=== PATIENT | female | born 1955 | race Caucasian/White ===

== ENCOUNTER 2024-02-17 14:53 | Emergency (ER) | payer OTHER ==
--- NOTE | 2024-02-17 15:44 | RAD REPORT ---
EXAMINATION: CT HEAD WITHOUT CONTRAST CT CERVICAL SPINE WITHOUT CONTRAST CLINICAL INDICATION: Head and neck injury status post head being hit by tile. Head and neck pain TECHNIQUE: Axial CT images from the skull base to the vertex without intravenous contrast. Axial CT i mages through the cervical spine were obtained without intravenous contrast. Sagittal and coronal reformatted images were created from the data set. Coronal and sagittal reformatted images were creat ed from the data set. One or more of the following dose reduction techniques were used: Automated exposure control, adjustment of the mA and/or kV according to patient size, and/or iterative reconstr uction. Unless otherwise specified, incidental findings do not require dedicated imaging follow-up. [id number]. Comparison: none FINDINGS: An intracranial bleed is not seen. Ventricles are normal in caliber. No significant hypodensity within the brain No extra-axial fluid collection. No fluid within the sinuses/mastoids No fracture or dislocation is seen involving the cervical spine.. Mild posterior subluxation C5 on C6 . Spondylosis cervical spine. No significant prevertebral soft tissue swelling noted. IMPRESSION: No acute intracranial abnormality noted A cervical fracture is not seen. 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
--- NOTE | 2024-02-17 16:17 | RAD REPORT ---
Exam:Forearm Left Clinical history: Left forearm pain Findings: No fracture or dislocation seen.
--- NOTE | 2024-02-17 16:18 | RAD REPORT ---
Exam:Knee Left 3 View HISTORY: Left knee pain FINDINGS: No fracture or dislocation seen If the patient continues to have symptoms to suggest an occult fracture, ligamentous or meniscal inju ry then MRI would be recommended
--- NOTE | 2024-02-17 16:20 | RAD REPORT ---
Exam:Forearm Right Clinical history: Right forearm pain Findings: No fracture or dislocation seen.
--- NOTE | 2024-02-17 16:33 | EDPHYS ---
Physician Documentation [facility] Name: Honey Mark Age: 68 yrs Sex: Female : 1955 Arrival Date: 02/17/2024 Time: 14:53 Bed 3 Private MD: ED Physician Devon Chinchilla HPI: 02/16 15:42 This 68 yrs old Female presents to ER via EMS with complaints of head injury. rn 15:42 Mechanism of injury: Blunt trauma. Associated injuries: The patient sustained injury to rn the head, Left knee, left forearm, right forearm. Onset: The symptoms/episode began/occurred just prior to arrival. The patient has not experienced similar symptoms in the past. Patient reports using bathroom and convenience store, large tile, ceramic, fell off the wall and struck on the head, majority of trauma was to top of head but when tile broke it scraped her right side of neck, and also sustained contusions to the right and left forearm as well as the left knee. Unclear if LOC. Takes Xarelto. Reports initially felt dazed and is starting to feel better now. Patient denies any chest pain or abdominal pain. Historical: - Allergies: 15:09 Epinephrine; jl7 15:09 Prednisone; jl7 - Home Meds: 15:09 Xarelto oral [Active]; Metoprolol Tartrate Oral [Active]; levothyroxine oral [Active]; jl7 - PMHx: 15:09 Atrial fibrillation; Hypothyroidism; Hypercholesterolemia; Hypertensive disorder; jl7 - Immunization history:: Adult Immunizations unknown. - Infectious Disease History:: Denies. - Social history:: Smoking status: Patient denies any tobacco usage or history of. - Family history:: not pertinent. - Hospitalizations: : No recent hospitalization is reported. ROS: 15:42 Constitutional: Negative for fever, chills, and weight loss, Neck: Positive for right rn neck pain Cardiovascular: Negative for chest pain, palpitations, and edema, Respiratory: Negative for shortness of breath, cough, wheezing, and pleuritic chest pain, Abdomen/GI: Negative for abdominal pain, nausea, vomiting, diarrhea, and constipation, Back: Negative for injury and pain, MS/Extremity: Positive for right forearm and left forearm pain with bruising, right forearm abrasion, left knee contusion with bruising Neuro: Positive for mild headache, negative for seizure or focal weakness Exam: 15:42 Constitutional: This is a well developed, well nourished patient who is awake, alert, rn and in no acute distress. Head/Face: Normocephalic, atraumatic. Eyes: Pupils equal round and reactive to light, extra-ocular motions intact. Neck: No midline cervical tenderness. Abrasion and contusion to the right lateral neck and postauricular region. No crepitus. No expansile masses. No tenderness over vasculature. Cardiovascular: Regular rate and rhythm. No pulse deficits. Respiratory: Speaking full sentences, unlabored. Abdomen/GI: Soft, nontender MS/ Extremity: Pulses equal, no cyanosis. Neurovascular intact. Full, normal range of motion. Equal circumference. Left suprapatellar ecchymosis with full range of motion of knee. Left distal forearm contusion and ecchymosis with full range of motion and no gross deformity. Right distal forearm with multiple linear abrasions, no lacerations and full range of motion. Neuro: Awake and alert, GCS 15, oriented to person, place, time, and situation. Moving all 4 extremities with equal strength. Vital Signs: 15:06 BP 162 / 92; Pulse 62; Resp 15; Temp 97; Pulse Ox 100% ; Weight 81.65 kg; Height 5 ft. jl7 4 in. ; Pain 4/10; 16:15 BP 155 / 88; Pulse 70; Resp 17; Pulse Ox 98% on R/A; rs5 17:00 BP 147 / 84; Pulse 77; Resp 17; Pulse Ox 98% on R/A; rs5 15:06 Body Mass Index 30.90 (81.65 kg, 162.56 cm) jl7 15:06 Pain Scale: Adult jl7 MDM: 14:59 Medical Screening Exam initiated rn 16:28 Differential diagnosis: closed head injury. Data reviewed: vital signs, nurses notes, rn radiologic studies, CT scan, plain films, and as a result, I will discharge patient. 16:31 Counseling: I had a detailed discussion with the patient and/or guardian regarding the rn historical points, exam findings, and any diagnostic results supporting the discharge/admit diagnosis, radiology results, the need for outpatient follow up, to return to the emergency department if symptoms worsen or persist or if there are any questions or concerns that arise at home. Response to treatment: the patient's symptoms have markedly improved after treatment, and as a result, I will discharge patient. Special discussion: Based on the patient's history, exam and DX evaluation, there is no indication for emergent intervention or inpatient TX. It is understood by the patient/guardian that if the SXs persist or worsen they need to return immediately for re-evaluation. I discussed with the patient/guardian in detail that at this point there is no indication for admission to the hospital. It is understood, however, that if the symptoms persist or worsen the patient needs to return immediately for re-evaluation. ED course: No acute findings on imaging, specifically no fracture or intracranial bleeding. Patient is back to baseline, stable vital signs, will discharge home and asked her to hold her Xarelto for the next day or 2. Patient states that she has already missed a few doses of Xarelto in the last few days, return precautions given and understood.. 02/16 15:01 Order name: CT Head C Spine; Complete Time: 16:12 rn 02/16 15:01 Order name: XRAY Forearm LEFT; Complete Time: 16:23 rn 02/16 15:01 Order name: XRAY Forearm RIGHT; Complete Time: 16:23 rn 02/16 15:01 Order name: XRAY Knee LEFT 3 view; Complete Time: 16:23 rn Administered Medications: No medications were administered Disposition Summary: 02/17/24 16:32 Discharge Ordered Notes: Location: Home rn Problem: new rn Symptoms: have improved rn Condition: Stable rn Diagnosis - Unspecified injury of head, initial encounter rn - Contusion of left forearm rn - Contusion of right forearm rn - Contusion of left knee rn Followup: rn - With: Private Physician - When: As needed - Reason: Recheck today's complaints, Re-evaluation by your physician Discharge Instructions: - Discharge Summary Sheet rn - Contusion rn - Head Injury, Adult rn Forms: - Medication Reconciliation Form rn - Antibiotic internal affairs investigator - Prescription Opioid Use rn - Patient Portal Instructions rn - Leadership Thank You Letter rn Signatures: Dispatcher [employer] EDOK Devon Chinchilla MD MD rn Leal, Jahala, RN RN jl7 Corrections: (The following items were deleted from the chart) 15:01 15:01 Forearm Left+RAD.RAD.BRZ ordered. [facility] EDMS 15:01 15:01 Forearm Right+RAD.RAD.BRZ ordered. EDMS EDMS 15:01 15:01 Knee Left 3 View+RAD.RAD.BRZ ordered. EDMS EDMS
--- NOTE | 2024-02-17 16:33 | ER ---
Nurse's Notes [facility] Name: Honey Mark Age: 68 yrs Sex: Female : 1955 Arrival Date: 02/17/2024 Time: 14:53 Bed 3 Private MD: Diagnosis: Unspecified injury of head, initial encounter;Contusion of left forearm;Contusion of right forearm;Contusion of left knee Presentation: 02/16 15:06 Chief complaint: Patient states: Large tile, approximately 25 pounds, fell on back of 7 head/neck and broke. abrasions to right wrist, bruising to left forearm and left leg. Coronavirus screen: At this time, the client does not indicate any symptoms associated with coronavirus-19. Ebola Screen: No symptoms or risks identified at this time. Initial Sepsis Screen: Does the patient meet any 2 criteria? No. Patient's initial sepsis screen is negative. Does the patient have a suspected source of infection? No. Patient's initial sepsis screen is negative. Risk Assessment: Do you want to hurt yourself or someone else? Patient reports no desire to harm self or others. Onset of symptoms was February 17, 2024. Care prior to arrival: None. 15:06 Method Of Arrival: EMS: [facility] 15:06 Acuity: LUNA 2 jl7 Triage Assessment: 15:09 General: Appears in no apparent distress. uncomfortable, Behavior is calm, cooperative, jl7 appropriate for age. Pain: Complains of pain in back, head, bilateral arms, left leg Pain currently is 4 out of 10 on a pain scale. Neuro: Level of Consciousness is awake, alert, obeys commands, Oriented to person, place, time, situation. Cardiovascular: Patient's skin is warm and dry. Respiratory: Airway is patent Respiratory effort is even, unlabored, Respiratory pattern is regular, symmetrical. Derm: Skin is pink, warm \T\ dry. Musculoskeletal: Swelling present in left arm and left leg. Injury Description: Abrasion sustained to right arm and left arm Bruise sustained to right ear, right arm, left arm and left leg. Historical: - Allergies: 15:09 Epinephrine; jl7 15:09 Prednisone; jl7 - Home Meds: 15:09 Xarelto oral [Active]; Metoprolol Tartrate Oral [Active]; levothyroxine oral [Active]; jl7 - PMHx: 15:09 Atrial fibrillation; Hypothyroidism; Hypercholesterolemia; Hypertensive disorder; jl7 - Immunization history:: Adult Immunizations unknown. - Infectious Disease History:: Denies. - Social history:: Smoking status: Patient denies any tobacco usage or history of. - Family history:: not pertinent. - Hospitalizations: : No recent hospitalization is reported. Screenin:28 [facility] ED Fall Risk Assessment (Adult) History of falling in the last 3 months, iw including since admission No falls in past 3 months (0 pts) Confusion or Disorientation No (0 pts) Intoxicated or Sedated No (0 pts) Impaired Gait No (0 pts) Mobility Assist Device Used No (0 pt) Altered Elimination No (0 pt) Score/Fall Risk Level 0 - 2 = Low Risk Oriented to surroundings, Maintained a safe environment. Abuse screen: Denies threats or abuse. Nutritional screening: No deficits noted. Tuberculosis screening: No symptoms or risk factors identified. Assessment: 15:45 General: Appears in no apparent distress. Behavior is calm, cooperative. Pain: iw Complains of pain in neck and right arm and left leg. Neuro: Level of Consciousness is awake, alert, obeys commands, Oriented to person, place, time, situation, Moves all extremities. Full function. 15:45 Cardiovascular: Patient's skin is warm and dry. Respiratory: Airway is patent rs5 Respiratory effort is even, unlabored, Respiratory pattern is regular, symmetrical. GI: Abdomen is round non-distended, Abd is soft and non tender X 4 quads. : No signs and/or symptoms were reported regarding the genitourinary system. EENT: No signs and/or symptoms were reported regarding the EENT system. Derm: Skin is intact, Skin is pink, warm \T\ dry. Derm: Derm: Musculoskeletal: Range of motion: intact in all extremities. 16:28 Reassessment: Patient appears in no apparent distress at this time. Patient and/or iw family updated on plan of care and expected duration. Pain level reassessed. Patient is alert, oriented x 3, equal unlabored respirations, skin warm/dry/pink. Patient states feeling better. 16:55 Reassessment: Patient and/or family updated on plan of care and expected duration. Pain rs5 level reassessed. Patient is alert, oriented x 3, equal unlabored respirations, skin warm/dry/pink. Vital Signs: 15:06 BP 162 / 92; Pulse 62; Resp 15; Temp 97; Pulse Ox 100% ; Weight 81.65 kg; Height 5 ft. jl7 4 in. ; Pain 4/10; 16:15 BP 155 / 88; Pulse 70; Resp 17; Pulse Ox 98% on R/A; rs5 17:00 BP 147 / 84; Pulse 77; Resp 17; Pulse Ox 98% on R/A; rs5 15:06 Body Mass Index 30.90 (81.65 kg, 162.56 cm) jl7 15:06 Pain Scale: Adult 7 ED Course: 14:59 Patient arrived in ED. rn 14:59 Devon Chinchilla MD is Attending Physician. rn 15:02 Andrew Grider, RN is Primary Nurse. rs5 15:09 Triage completed. jl7 15:09 Arm band placed on right wrist. jl7 15:19 CT Head C Spine In Process Unspecified. EDMS 16:01 XRAY Forearm LEFT In Process Unspecified. EDMS 16:01 XRAY Forearm RIGHT In Process Unspecified. EDMS 16:01 XRAY Knee LEFT 3 view In Process Unspecified. EDMS 16:28 Patient has correct armband on for positive identification. iw 16:28 No provider procedures requiring assistance completed. Patient did not have IV access iw during this emergency room visit. 16:55 Provided Education on: discharge instructions . rs5 Administered Medications: No medications were administered Medication: 16:28 VIS not applicable for this client. iw Outcome: 16:32 Discharge ordered by . rn 17:05 Discharged to home via wheelchair, with family, rs5 17:05 Condition: stable rs5 17:05 Discharge instructions given to patient, family, Instructed on discharge instructions, follow up and referral plans. medication usage, Demonstrated understanding of instructions, follow-up care, medications, Prescriptions given X 2, 17:09 Patient left the ED. rs5 Signatures: Dispatcher [employer] Lexus Hollins RN Devon Salas MD MD rn Leal, Jahala, RN RN jl7 Sotelo, Ricky, LUIGI RN rs5 Corrections: (The following items were deleted from the chart) 18:26 17:05 Discharge instructions given to patient, family, Instructed on discharge rs5 instructions, follow up and referral plans. Demonstrated understanding of instructions, follow-up care, rs5 18:29 16:01 BP 147 / 84; Pulse 77bpm; Resp 17bpm; Pulse Ox 98% RA; rs5 rs5 18:30 18:29 Provided Education on: discharge instructions . rs5 rs5
[2024-02-17 23:41] VITALS: BP 162/92; TEMP 97; O2SAT 100
== END 2024-02-17 17:09 | disposition home or self-care (01) ==
LOC: ER 14:53
DX: S09.90XA Unspecified injury of head, initial encounter (principal); S50.12XA Contusion of left forearm, initial encounter; S50.11XA Contusion of right forearm, initial encounter; S80.02XA Contusion of left knee, initial encounter; W22.8XXA Striking against or struck by other objects, initial encounter; I48.91 Unspecified atrial fibrillation; Z79.01 Long term (current) use of anticoagulants
CPT/HCPCS: 70450; 72125; 99283